=== PATIENT | female | born 1975 | race Caucasian/White ===

== ENCOUNTER 2020-10-22 14:34 | Outpatient (CLI) | payer OTHER, SELFPAY ==
--- NOTE | ~2020-10-22 | MM_ITS ---
EXAMINATION: MM screening cheryle BI w frank HISTORY: Screening mammogram TECHNIQUE: Craniocaudal and mediolateral oblique 3-D tomosynthesis images were obtained and synthetic 2-D images were generated. CAD analysis was submitted and interpreted. COMPARISON: , 02/28/2018, 01/19/2017 bilateral digital screening mammogram examinations BREAST PARENCHYMAL COMPOSITION: There are scattered areas of fibroglandular density. FINDINGS: There is no evidence of suspicious mass, calcification, or architectural distortion to sugg est malignancy in either breast. There has been no suspicious interval change. IMPRESSION: 1. No mammographic evidence of malignancy. 2. Recommend routine screening mammography in one year. BI-RADS Category 1: Negative Reviewed, dictated and finalized at location A.
== END 2020-10-22 14:35 | disposition home or self-care (01) ==
PROVIDERS: PCP Family Medicine; Visit Provider Obstetrics & Gynecology
DX: Z12.31 Encounter for screening mammogram for malignant neoplasm of breast (principal)
CPT/HCPCS: 77063; 77067

== ENCOUNTER 2022-02-02 15:43 | Outpatient (CLI) | payer OTHER, SELFPAY ==
--- NOTE | ~2022-02-02 | MM_ITS ---
EXAMINATION: MM screening cheryle BI w frank HISTORY: Screening TECHNIQUE: Craniocaudal and mediolateral oblique 3-D tomosynthesis images were obtained and synthetic 2-D images were generated. CAD analysis was submitted and interpreted. COMPARISON: Comparison to multiple prior studies sequentially, with oldest reviewed study dated 01/19. BREAST PARENCHYMAL COMPOSITION: Breast composed of scattered areas of fibroglandular density FINDINGS: There is no evidence of suspicious mass, calcification, or architectural distortion to sugg est malignancy in either breast. There has been no suspicious interval change. IMPRESSION: 1. No mammographic evidence of malignancy. 2. Recommend routine screening mammography in one year. BI-RADS Category 1: Negative Reviewed, dictated and finalized at location A.
== END 2022-02-02 15:44 | disposition home or self-care (01) ==
LOC: ANHIMG 15:53
PROVIDERS: PCP Family Medicine; Visit Provider Obstetrics & Gynecology
DX: Z12.31 Encounter for screening mammogram for malignant neoplasm of breast (principal)
CPT/HCPCS: 77063; 77067

== ENCOUNTER 2022-12-14 10:35 | Outpatient (CLI) | payer OTHER, SELFPAY ==
[2022-12-14 20:01] LABS: Basophils Percent Auto 0.6 % (0.2-1.2); Eosinophils Absolute Auto 0.1 K/mm3 (0-0.3); Eosinophils Percent Auto 2.3 % (0-4.4); Hematocrit 41.6 % (37.0-47.0); Hemoglobin 13.1 g/dL (12.0-15.0); Immature Granulocyte Absolute 0.01 K/mm3 (0.00-0.031); Immature Granulocyte Percent A 0.2 % (0-0.5); Lymphocytes Absolute Auto 1.59 K/mm3 (0.9-3.2); Lymphocytes Percent Auto 30.2 % (18.3-44.2); Mean Corpuscular HGB Conc 31.5 g/dl (32-36); Mean Corpuscular Hemoglobin 27.5 pg (26-34); Mean Corpuscular Volume 87.4 fl (80-100); Mean Platelet Volume 9.9 fl (7.4-10.4); Monocytes Absolute Auto 0.4 K/mm3 (0.1-0.6); Monocytes Percent Auto 7.4 % (2.6-8.5); Neutrophils Absolute Auto 3.1 K/mm3 (1.3-6.7); Neutrophils Percent Auto 59.3 % (45.5-73.1); Platelet Count Result 247 k/mm3 (150-375); Red Blood Count 4.76 M/mm3 (4.2-5.4); Red Cell Distribution Width 14.7 % (11.5-14.5); White Blood Count 5.3 K/mm3 (4.5-10.0)
[2022-12-14 21:04] LABS: Alanine Aminotransferase 24 U/L (6-35); Albumin Level 4.2 g/dL (3.5-5.1); Alkaline Phosphatase 72 U/L (38-126); Anion Gap 6 mmol/L (8-16); Aspartate Amino Transferase 39 U/L (14-36); Bilirubin,Total 0.4 mg/dL (0.2-1.3); Blood Urea Nitrogen 17 mg/dL (7-17); Calcium 9.1 mg/dL (8.4-10.2); Carbon Dioxide 31 mmol/L (22-30); Chloride 100 mmol/L (98-107); Cholesterol 191 mg/dL (0-200); Estimated Glomerular Filt Rate > 60; Glucose 94 mg/dL (65-110); HDL Direct 59 mg/dL; Sodium 137 mmol/L (137-145); Triglycerides 70 mg/dL (<150)
[2022-12-14 21:15] LABS: LDL Cholesterol Direct 105 mg/dL
[2022-12-14 21:25] LABS: Hemoglobin A1C 5.7 % (<5.7)
== END 2022-12-14 10:36 | disposition home or self-care (01) ==
LOC: ANHGOSHLAB 10:36
PROVIDERS: PCP Family Medicine; Visit Provider Family Medicine
DX: R53.83 Other fatigue (principal); Z13.220 Encounter for screening for lipoid disorders; Z13.29 Encounter for screening for other suspected endocrine disorder; E11.9 Type 2 diabetes mellitus without complications; Z13.228 Encounter for screening for other metabolic disorders
CPT/HCPCS: 36415; 80053; 80061; 83036; 84443; 85025

== ENCOUNTER 2023-01-11 12:30 | Outpatient (RCR) | payer OTHER, SELFPAY ==
--- NOTE | 2023-01-04 15:00 | OTOPEVAL1 ---
Assessment and note entered by Lakisha Archer OTR/Martín Evaluation Information Assessment Status Evaluation Diagnosis numbness in R UE hands Subjective Information Patient reports numbness and tingling throughout dorsal and volar aspect of digits 1-4 in R UE for years but has become worse over the past few months. Patient reports the numbness and tingling increases with daily tasks such as putting on make up, blow drying hair, holding a book/phone. Patient has a wrist cock up splint which she wears sometimes at night time. 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 Patient has R UE positive carpal compression/tinnels over carpal and a negative cubital compression/tinnels indicating median nerve compression symptoms. Patient additionally presents with radial nerve compression symptoms. Patient would benefit from skilled OT for HEP instruction, UE exercise, splinting as indicated in order to decrease median /radial compression symptoms and increase functional use of R UE. Plan of Care Interventions Therapeutic Exercise,Manual Therapy,Neuro Re- education,Therapeutic Activities,Self-Care/Home Management,Check Out for Orthotic/Pr OT Services Indicated Yes Treatment Frequency and 0-1x/wk, 5 weeks Duration These treatments will address the objective and functional deficits as defined above. The patient will be advanced safely and appropriately in order for the patient to progress towards his/her prior level of function. Additional exercises will be introduced and as well as a comprehensive home exercise program upon discharge, if needed, ?to ensure carryover of functional gains achieved in the clinic. This treatment plan has been reviewed and agreement upon by the patient.
--- NOTE | 2023-02-07 14:14 | OTOPDC ---
Assessment and note entered by Cristi Sainz, SUSAN/Martín, CHT Assessment OT Clinical Summary Coral called today reporting that her symptoms are improving with splinting, ROM, and nerve glides. She reports she would like to go on her own at this time and follow up with her MD if any needs arise in the future. Discharging from OT at this time. She attended the initial evaluation and 1 follow up session.
== END 2023-02-08 08:48 | disposition home or self-care (01) ==
LOC: ANHGOSHOT 12:30
PROVIDERS: PCP Family Medicine; Visit Provider Family Medicine
DX: G56.20 Lesion of ulnar nerve, unspecified upper limb (principal)
CPT/HCPCS: 97110; 97140; 97165; 97530

== ENCOUNTER → 2023-08-10 13:38 | Outpatient (CLI) | payer OTHER, SELFPAY ==
--- NOTE | ~2023-08-10 | US_ITS ---
EXAMINATION: US thyroid DATE: 08/10/2023 13:56 INDICATION: Nontoxic single thyroid nodule TECHNIQUE: Multiple ultrasound images of the thyroid were obtained. COMPARISON: None. FINDINGS: The right thyroid lobe measures 5.0 x 1.7 x 1.7 cm. The left thyroid lobe measures 4.5 x 1.1 x 1.4 c m. 8 mm wider than tall solid hypoechoic nodule with ill-defined margins and without echogenic foci in the inferior right thyroid lobe (TI-RADS 4, moderately suspicious , FNA if >=1.5 cm, annual follow up is >=1 cm). 2 mm nodule in the more cephalad right thyroid, due to the small size it remains uncle ar whether this represents a cystic TI RADS 1 or solid hypoechoic TI RADS 4 nodule. There is normal e chotexture, echogenicity and vascular flow throughout the remainder of the thyroid gland. IMPRESSION: 1. 8 mm TI RADS 4 right thyroid nodule which remains below size criteria for either biopsy or ultraso und follow-up. Recommend clinical followup with repeat imaging if there are changes on physical exam. Reviewed, dictated and finalized at location A. 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 8 mm TI RADS 4 right thyroid nodule which remains below size criteria for ei ther biopsy or ultrasound follow-up. Recommend clinical followup with repeat im aging if there are changes on physical exam.
== END ==
PROVIDERS: PCP Family Medicine; Visit Provider Family Medicine
DX: E04.1 Nontoxic single thyroid nodule (principal)
CPT/HCPCS: 76536

== ENCOUNTER 2023-09-27 15:38 | Outpatient (CLI) | payer OTHER, SELFPAY ==
--- NOTE | ~2023-09-27 | MR_ITS ---
EXAMINATION: MR brain/brain stem wo/w con DATE: 09/27/2023 16:35 INDICATION: Migraine, unspecified, not intractable. TECHNIQUE: Magnetic resonance imaging (MRI) of the brain and brainstem was performed without and with 20 mL MultiHance intravenous contrast. COMPARISON: None. FINDINGS: There is no intracranial hemorrhage, acute infarction, or abnormal intracranial mass lesion . The ventricles are normal in size. There is a mucous retention cyst in left maxillary sinus. The or bits are normal. The mastoid air cells are normal. IMPRESSION: 1. Normal brain. Reviewed, dictated and finalized at location A. NISTRATIVE SERVICES DIRECTOR IMPRESSION: 1. Normal brain.
== END 2023-09-27 15:39 | disposition home or self-care (01) ==
PROVIDERS: PCP Family Medicine; Visit Provider Family Medicine
DX: G43.909 Migraine, unspecified, not intractable, without status migrainosus (principal); E23.6 Other disorders of pituitary gland
CPT/HCPCS: 70553; A9577

== ENCOUNTER 2023-11-06 09:09 | Outpatient (CLI) | payer OTHER, SELFPAY ==
--- NOTE | ~2023-11-06 | XR_ITS ---
EXAM: XR knee RT min 4V DATE: 11/06/2023 09:34 HISTORY: no injury posterior knee pain for 3 weeks . COMPARISON: 09/03/2018. FINDINGS: Mildly decreased mineralization. No fracture or dislocation. No lytic or blastic lesion. T ricompartmental right knee osteoarthritis, moderate in the medial and patellofemoral compartments. No erosion or periosteal change. Small volume knee joint fluid. Soft tissues within normal limits. IMPRESSION: No acute osseous finding in the right knee. Reviewed, dictated and finalized at location K.
== END 2023-11-06 09:10 ==
PROVIDERS: PCP Family Medicine; Visit Provider Family Medicine
DX: M25.561 Pain in right knee (principal)
CPT/HCPCS: 73564

== ENCOUNTER 2023-11-10 14:06 | Outpatient (CLI) | payer OTHER, SELFPAY ==
--- NOTE | ~2023-11-10 | MM_ITS ---
EXAMINATION: MM screening cheryle BI w frank HISTORY: Screening TECHNIQUE: Craniocaudal and mediolateral oblique 3-D tomosynthesis images were obtained and synthetic 2-D images were generated. CAD analysis was submitted and interpreted. COMPARISON: Comparison to multiple prior studies sequentially, with oldest reviewed study dated 10/22. BREAST PARENCHYMAL COMPOSITION: Not dense: There are scattered areas of fibroglandular density. FINDINGS: There is no evidence of suspicious mass, calcification, or architectural distortion to sugg est malignancy in either breast. There has been no suspicious interval change. IMPRESSION: 1. No mammographic evidence of malignancy. 2. Recommend routine screening mammography in one year. BI-RADS Category 1: Negative Reviewed, dictated and finalized at location A.
== END 2023-11-10 14:07 | disposition home or self-care (01) ==
LOC: ANHIMG 14:08
PROVIDERS: PCP Family Medicine; Visit Provider Obstetrics & Gynecology
DX: Z12.31 Encounter for screening mammogram for malignant neoplasm of breast (principal)
CPT/HCPCS: 77063; 77067

== ENCOUNTER 2023-12-26 11:04 | Outpatient (CLI) | payer OTHER, SELFPAY ==
--- NOTE | ~2023-12-26 | XR_ITS ---
Left Knee Technique: AP, lateral, and sunrise views were obtained. Clinical History: Pain Findings: No fracture or dislocation is seen. Osseous alignment is anatomic. There is mild to moderat e tricompartmental degenerative spurring. Soft tissues are unremarkable. No joint effusion is seen. Impression: Mild to moderate tricompartmental degenerative spurring, worst at the patella. Reviewed, dictated and finalized at location . Impression: Mild to moderate tricompartmental degenerative spurring, worst at the patella.
== END 2023-12-26 11:05 ==
PROVIDERS: PCP Family Medicine; Visit Provider Family Medicine
DX: M76.892 Other specified enthesopathies of left lower limb, excluding foot (principal); M25.562 Pain in left knee
CPT/HCPCS: 73564

== ENCOUNTER 2024-01-05 11:04 | Outpatient (CLI) | payer OTHER, SELFPAY ==
--- NOTE | ~2024-01-05 | MR_ITS ---
EXAMINATION: MR knee LT wo con DATE: 01/05/2024 11:49 INDICATION: Unspecified internal derangement of left knee. Left knee pain. TECHNIQUE: Magnetic resonance imaging (MRI) of the left knee was performed without intravenous contra st. Sequences included axial PD-weighted FS FSE, coronal PD-weighted FSE and PD-weighted FS FSE, sagi ttal PD-weighted FSE, and sagittal T2-weighted FS FSE. COMPARISON: Left knee radiographs 12/26/2023 FINDINGS: Medial compartment: There is a radial tear of posterior horn of medial meniscus. There is cartilage surface irregularity of tibial condyle. There is deep partial-thickness cartilage loss of femoral condyle medially. Osteop hytes are noted. Lateral compartment: Lateral meniscus is normal. There is deep partial-thickness cartilage loss of tibial condyle and femo ral condyle involving the central articular surface. Osteophytes are noted. Patellofemoral compartment: There is full-thickness cartilage loss of patellar lateral facet with mild subchondral edema-like mar row signal intensity. There is full-thickness cartilage loss of central and lateral trochlea. Osteoph ytes are noted. Ligaments and tendons: The anterior and posterior cruciate ligaments are normal. There are changes of prior sprains of media l collateral ligament and fibular collateral ligament characterized by increased signal intensity. Th ere is mild patellar tendinopathy. Fluid: There is a small knee joint effusion. IMPRESSION: 1. Severe chondrosis of patellofemoral compartment and moderate chondrosis of medial and lateral comp artments. 2. Tear of medial meniscus. 3. Small knee joint effusion. Reviewed, dictated and finalized at location A. IMPRESSION: 1. Severe chondrosis of patellofemoral compartment and moderate chondrosis of m edial and lateral compartments. 2. Tear of medial meniscus. 3. Small knee joint effusion.
== END 2024-01-05 11:05 ==
LOC: MICIMG 11:04
PROVIDERS: PCP Family Medicine; Visit Provider Family Medicine
DX: M25.462 Effusion, left knee (principal); S83.242D Other tear of medial meniscus, current injury, left knee, subsequent encounter; X58.XXXD Exposure to other specified factors, subsequent encounter
CPT/HCPCS: 73721

== ENCOUNTER 2024-02-29 13:08 | Outpatient (CLI) | payer OTHER, SELFPAY ==
--- NOTE | 2024-02-29 13:00 | ECG_ITS ---
Test Date: 2024-02-29 13:44:59 Measurements Intervals [place] Rate: 73 P: 54 CO: 167 QRS: 5 QRSD: 100 T: 42 QT: 369 QTc: 408 Interpretive Statements SINUS RHYTHM LOW QRS VOLTAGE IN PRECORDIAL LEADS [QRS DEFLECTION < 1.0 mV IN CHEST LEADS] POOR R-WAVE PROGRESSION BORDERLINE ECG No previous ECG available for comparison Electronically Signed On 03-01-2024 11:01:58 CDT by Сергей Sommers M.D.
[2024-02-29 14:08] LABS: Anion Gap 10 mmol/L (4-12); Blood Urea Nitrogen 19 mg/dL (7-17); Calcium 9.4 mg/dL (8.4-10.2); Carbon Dioxide 28 mmol/L (22-30); Chloride 100 mmol/L (98-107); Estimated Glomerular Filt Rate > 60; Glucose 93 mg/dL (65-110); Sodium 138 mmol/L (137-145)
== END 2024-02-29 13:09 | disposition home or self-care (01) ==
LOC: ANHSURGERY 13:11
PROVIDERS: Anesthesiology; PCP Family Medicine; Visit Provider Orthopaedic Surgery
DX: I10 Essential (primary) hypertension (principal); Z79.899 Other long term (current) drug therapy; Z01.818 Encounter for other preprocedural examination; R94.31 Abnormal electrocardiogram [ECG] [EKG]
CPT/HCPCS: 36415; 80048; 93005

== ENCOUNTER 2024-03-04 00:51 | Day surgery (SDC) | payer OTHER, SELFPAY ==
[2024-02-28 10:34] VITALS: BMI 47.4
--- NOTE | 2024-02-28 10:40 | PC.NURSE ---
Report to the Outpatient Waiting Room, entrance under the green pavilion located off [facility], at time _0830_ on date _[id number]_. Planned Procedure Time: _1030_. Time changes happen often and if your time is changed the preop area will call you the afternoon before. - You and your visitor will be asked to self-screen and do not enter if you have any COVID symptoms. - A mask is optional within the hospital at this time. Patients may have clear liquids (water, carbonated beverages, clear teas, apple juice) until 3 hours prior to surgery with a maximum of 20 ounces. - No food from midnight until time of surgery Take the following medications with a SIP of water the morning of surgery: ____None DO NOT STOP ANY OF YOUR OTHER PRESCRIPTION MEDICATIONS PRIOR TO SURGERY ?EXCEPT THE FOLLOWING Medications to discontinue per physician Vitamins and fish oil Date to take last [id number] Ruvalcaba's office about Naproxen. Please no make-up, nail german, hairspray, perfume, deodorant, or body powder the day of surgery. No jewelry (including any body piercings) or valuables the day of surgery, leave them at home. Please take a shower or bath the night before, or the morning of, surgery with an antibacterial soap. Wear comfortable, loose fitting clothing. - Jewelry must be removed prior to entering the operating room. Rings and piercings that are not removed may be cut off. - The hospital will not accept responsibility for valuables. - Please leave all valuables, including medications, at home the day of surgery. If you are going home after surgery, a licensed driver lifter of sanitation truck must drive you home. - NO public transportation without another adult if you receive anesthesia. - We recommend that an adult stay with you for 24 hours following discharge. - We also recommend that you do not drive, make important decision, drink alcoholic beverages, or take any drugs that were not prescribed by your health care provider for at least 24 hours after your discharge time. Follow any additional instructions given to you from your surgeon. If you or anyone in your household have experienced Covid symptoms in the past week, please notify your surgeon or the nurse liaison at the phone number below for possible testing. Telephone instructions given to __Coral__and asked if any additional questions and then verbalized understanding. Patient advised to call surgeon office or pre surgery nurse liaison [phone] if any additional questions.
--- NOTE | 2024-03-01 14:02 | PM.IMHP ---
H&P: HPI History of Present Illness Date/Time: 03/01/24 14:02 Chief Complaint: Locking and catching Left knee. She has failed conservative treatment. She would like to proceed with Arthoscopy eft knee and partial meniscectomy. Review of Systems Musculoskeletal: Musculoskeletal: Reports arthralgias, Reports joint swelling and Reports stiffness [facility] Past Medical History Medical History Tear of meniscus of right knee Surgical History Surgical History H/O: hysterectomy History of cholecystectomy History of lateral meniscus repair of right knee History of tubal ligation Family History Family History Mother Hypertension Father Hypertension Sibling Hypertension Grandparent Hypertension Grandparent Hypertension Social History Social History (Updated 02/08/24 @ 13:24 by XANDER Poon) Social History: Caffeine daily Smoking status: Never smoker Second hand tobacco smoke exposure: Yes Alcohol intake: current Alcohol use details: rarely Substance use: never Substance use type: does not use Do You Feel Safe in your Home?: Yes Lack of Transportation: No Lack of Food: Never True Current Housing: I Have Housing Concerned About Future Housing: No Difficulty Paying Gas/Electric Bills: No Difficulty Paying for Meds: No Currently Unemployed: No Education: High School Diploma/GED Difficulty w/ Childcare or Family Care: No Living arrangements: with family Occupation/Education: occupation 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 Gender identity (if verbalized by the patient): Female Spiritual care concerns: No Meds Home Medications and Allergies Home Medications Medication Instructions Recorded Confirmed Type omega 3-dnp-hhg-fish oil 300 1 cap PO DAILY 11/14/22 02/28/24 History mg-1,000 mg capsule (Fish Oil) magnesium hydroxide 400 mg/5 mL 5 ml PO DAILY PRN Constipation 12/26/23 02/28/24 History oral suspension (Dulcolax (magnesium hydroxide)) losartan 50 mg-hydrochlorothiazide 1 tablet PO DAILY #90 tabs 01/16/24 02/28/24 Rx 12.5 mg tablet naproxen 500 mg tablet 500 mg PO DAILY #90 tabs 02/06/24 02/28/24 Rx cyanocobalamin (vitamin B-12) 1,000 mcg PO DAILY 02/28/24 02/28/24 History 1,000 mcg tablet (Vitamin B-12) vitamin A 10,000 unit tablet 10,000 unit PO DAILY 02/28/24 02/28/24 History Allergies Allergy/AdvReac Type Severity Reaction Status Date / Time No Known Allergies Allergy Verified 02/28/24 10:30 Exam Narrative: Patient has mechanical catching and locking of the left knee. She has a positive Joann's test. She has joint line pain. Neurologicaly she is intact. Knee X-Ray 12/26/23 Knee MRI 01/05/24 Assessment and Plan Assessment and plan (1) Acute medial meniscus tear of left knee: Code(s): S83.242A - Other tear of medial meniscus, current injury, left knee, initial encounter Status: Acute Assessment and Plan: Patient has a medial meniscal tear LEFT. She has mechanical catching and locking. She has failed conservative treatment. She would like to proceed with arthroscopy, partial meniscectomy, proceed as indicated. I have discussed risks, benefits, limitations and alternatives in detail. Will proceed per her request.
[2024-03-04] VITALS (13 sets, daily range): BP systolic 119–142; BP diastolic 70–85; PULSE 69–98; RESP 12–19; TEMP 36.2–36.6; O2SAT 94–100
[2024-03-04] MEDS: ACETAMINOPHEN 500 MG TABLET 1000 MG PO (09:05)
[2024-03-04] MEDS: KETOROLAC 15 MG/ML VIAL (*BKC) IV PUSH ×2 (09:15→12:28)
--- NOTE | 2024-03-04 09:24 | WPDANESEPPF ---
Anes - Initial Pre Proc Eval Procedure: Operation Date: 03/04/24 10:30 Proposed Procedures p Left Knee Arthroscopy with Partial Medial Meniscectomy, Proceed As Indicated - Desean Ruvaclaba MD Date/Time: 03/04/24 09:24 Surgeon: Desean Ruvalcaba MD Pre Op Diagnosis: Lt Medial Meniscus Tear Patient Data Age: 48 Gender: F Height: 1.6 m Weight: 121.6 kg Last Vital Signs Temp 36.6 C 03/04/24 08:40 Pulse 98 03/04/24 08:40 Resp 16 03/04/24 08:40 BP 141/81 H 03/04/24 08:40 Pulse Ox 100 03/04/24 08:40 O2 Del Method Room Air 03/04/24 08:40 Allergies Allergy/AdvReac Type Severity Reaction Status Date / Time No Known Allergies Allergy Verified 02/28/24 10:30 Home Medications Medication Instructions Recorded Confirmed Type omega 3-yti-vli-fish oil 300 1 cap PO DAILY 11/14/22 02/28/24 History mg-1,000 mg capsule (Fish Oil) magnesium hydroxide 400 mg/5 mL 5 ml PO DAILY PRN Constipation 12/26/23 02/28/24 History oral suspension (Dulcolax (magnesium hydroxide)) losartan 50 mg-hydrochlorothiazide 1 tablet PO DAILY #90 tabs 01/16/24 02/28/24 Rx 12.5 mg tablet naproxen 500 mg tablet 500 mg PO DAILY #90 tabs 02/06/24 02/28/24 Rx cyanocobalamin (vitamin B-12) 1,000 mcg PO DAILY 02/28/24 02/28/24 History 1,000 mcg tablet (Vitamin B-12) vitamin A 10,000 unit tablet 10,000 unit PO DAILY 02/28/24 02/28/24 History Patient hx anesthesia problems: none Family hx anesthesia problems: none Results Review: All pre-operative results and documents have been reviewed as part of the pre-operative evaluation. [facility] Past Medical History Medical History Tear of meniscus of right knee Surgical History Surgical History H/O: hysterectomy History of cholecystectomy History of lateral meniscus repair of right knee History of tubal ligation Family History Family History Mother Hypertension Father Hypertension Sibling Hypertension Grandparent Hypertension Grandparent Hypertension Social History Social History Social History: Caffeine daily Smoking status: Never smoker Second hand tobacco smoke exposure: Yes Alcohol intake: current Alcohol use details: rarely Substance use: never Substance use type: does not use Do You Feel Safe in your Home?: Yes Lack of Transportation: No Lack of Food: Never True Current Housing: I Have Housing Concerned About Future Housing: No Difficulty Paying Gas/Electric Bills: No Difficulty Paying for Meds: No Currently Unemployed: No Education: High School Diploma/GED Difficulty w/ Childcare or Family Care: No Living arrangements: with family Occupation/Education: occupation 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 Gender identity (if verbalized by the patient): Female Spiritual care concerns: No Anes - Eval Final PreProcedure Day of Procedure 03/04/24 09:24 Patient weight: morbidly obese Heart: regular rate and rhythm Lungs: clear to auscultation Airway: Mallampati scale class II Neurological: alert and oriented Last oral intake: >/= 8 hours ASA classification: III Emergent: no Anesthetic plan: proceed Anesthesia type and monitoring: general LMA and standard monitoring Results Review: All pre-operative results and documents have been reviewed as part of the pre-operative evaluation. Informed Consent: The patient's anesthetic plan and its attendant risks and benefits were discussed with the patient/family/POA. Questions were solicited and answers provided to the satisfaction of the patient/family/POA.
--- NOTE | 2024-03-04 09:43 | WPDHPUPDATE1 ---
History and Physical Update Update Date/Time: 03/04/24 09:43 History and Physical has been reviewed, including an updated exam of the patient. There are NO changes in the patient's condition. Risks, benefits, and alternatives have been discussed and questions answered. Patient agrees to proceed with procedure. Discussed the fact she has moderate pre-existing arthritis in the knee scope will not get rid of the arthritic pain.
[2024-03-04] MEDS: ceFAZolin 3 GM/D5W 100 ML 100 ML IVPB (10:19)
[2024-03-04] MEDS: SCOPOLAMINE 1 MG PATCH 1 PATCH TRANSDERM (10:20)
[2024-03-04] MEDS: LIDO 1%/EPINEPHRINE 1:100,000 20 ML VIAL 30 ML INFILTRATE (11:13)
--- NOTE | 2024-03-04 11:13 | W.PM.PROC2 ---
Procedure Note - Detailed Date of Procedure 03/04/24 Pre-op Diagnosis Left Medial Meniscus Tear Post-op Diagnosis Same Procedure Performed LEFT knee arthroscopy with partial meniscectomy Surgeon Desean Ruvalcaba MD Anesthesia General Indications Pain and catching Description of Procedure Patient brought to operating room # 9. An anesthetic was administered. The knee was sterilely prepped and draped in the usual manner. Standard portals were used. Superior medial portal was used for the outflow cannula, inferior lateral portal was used for the scope, inferior medial portal was used for the instruments. Arthroscopy was performed, the patellar femoral joint degenerative changes. The medial compartment showed a complex tear and grade 3-4 chondromalacia. The lateral compartment showed fraying and tearing with grade 3 chondromalacia. The ACL was intact. Using baskets and vicki the meniscal tears were trimmed back to a stable base so the nothing further could be pulled into the joint. Any loose or delaminated fragments were gently trimmed to a stable base. At this point the instruments were withdrawn, sutures placed and patient left the operating room in satisfactory condition. Of note is the patient had a significant amount of degenerative change. Estimated Blood Loss 20 Drains No Packing No Pathology None sent Complications No immediate complications Condition Stable Disposition PACU [facility] Billing Surgery - Charge Forward: Surgery Billing ([id number] Arthroscopy, partial meniscectomy)
[2024-03-04] MEDS: LACTATED RINGERS 1,000 ML 30 ML IV CONT ×2 (11:22)
[2024-03-04] MEDS: fentaNYL CITRATE INJ (*CRX) 100 MCG/2 ML VIAL 25 MCG IV PUSH ×8 (11:34→12:02)
[2024-03-04] MEDS: HYDROmorphone HCL INJ (*CRX) 1 MG/ML SYR IV PUSH ×3 (12:04→12:18)
[2024-03-04] MEDS: oxyCODONE HCL (*CRX) 5 MG TAB IR PO (14:08)
== END 2024-03-04 14:50 | disposition home or self-care (01) ==
PROVIDERS: PCP Family Medicine; Visit Provider Orthopaedic Surgery
PROC: (CPT 29870; principal; 2024-03-04 10:30)
DX: S83.232A Complex tear of medial meniscus, current injury, left knee, initial encounter (principal); M94.262 Chondromalacia, left knee; E66.01 Morbid (severe) obesity due to excess calories; Z68.42 Body mass index [BMI] 45.0-49.9, adult; Z79.1 Long term (current) use of non-steroidal anti-inflammatories (NSAID); Z98.890 Other specified postprocedural states; Z90.49 Acquired absence of other specified parts of digestive tract; Z98.51 Tubal ligation status; X58.XXXA Exposure to other specified factors, initial encounter
CPT/HCPCS: 29881; 36415; 80048; 93005; A9270; J0690; J1100; J1170; J1885; J2250; J2405; J2704; J3010; J7120

== ENCOUNTER 2024-03-19 11:05 | Outpatient (CLI) | payer OTHER, SELFPAY ==
[2024-03-19 15:20] LABS: Basophils Absolute Auto 0.1 K/mm3 (0.0-0.1); Basophils Percent Auto 0.9 % (0.2-1.2); Eosinophils Absolute Auto 0.1 K/mm3 (0-0.3); Eosinophils Percent Auto 1.1 % (0-4.4); Hematocrit 43.1 % (37.0-47.0); Hemoglobin 13.6 g/dL (12.0-15.0); Immature Granulocyte Absolute 0.02 K/mm3 (0.00-0.031); Immature Granulocyte Percent A 0.4 % (0-0.5); Lymphocytes Absolute Auto 1.58 K/mm3 (0.9-3.2); Lymphocytes Percent Auto 28.7 % (18.3-44.2); Mean Corpuscular HGB Conc 31.6 g/dl (32-36); Mean Corpuscular Volume 88.7 fl (80-100); Mean Platelet Volume 9.8 fl (7.4-10.4); Monocytes Absolute Auto 0.4 K/mm3 (0.1-0.6); Monocytes Percent Auto 6.5 % (2.6-8.5); Neutrophils Absolute Auto 3.4 K/mm3 (1.3-6.7); Neutrophils Percent Auto 62.4 % (45.5-73.1); Platelet Count Result 290 k/mm3 (150-375); Red Blood Count 4.86 M/mm3 (4.2-5.4); Red Cell Distribution Width 14.2 % (11.5-14.5); White Blood Count 5.5 K/mm3 (4.5-10.0)
[2024-03-19 15:23] LABS: Alanine Aminotransferase 24 U/L (6-35); Albumin Level 4.5 g/dL (3.5-5.1); Alkaline Phosphatase 87 U/L (38-126); Anion Gap 9 mmol/L (4-12); Aspartate Amino Transferase 55 U/L (14-36); Bilirubin,Total 0.5 mg/dL (0.2-1.3); Blood Urea Nitrogen 15 mg/dL (7-17); Calcium 9.5 mg/dL (8.4-10.2); Carbon Dioxide 30 mmol/L (22-30); Chloride 98 mmol/L (98-107); Cholesterol 210 mg/dL (0-200); Estimated Glomerular Filt Rate > 60; Glucose 97 mg/dL (65-110); HDL Direct 64 mg/dL; Potassium 4.3 mmol/L (3.4-5.0); Sodium 137 mmol/L (137-145); Triglycerides 52 mg/dL (<150)
[2024-03-19 15:54] LABS: LDL Cholesterol Direct 96 mg/dL
[2024-03-19 16:30] LABS: Vitamin D 25 Hydroxy 27.3 ng/mL
== END 2024-03-19 11:06 | disposition home or self-care (01) ==
LOC: ANHGOSHLAB 11:07
PROVIDERS: PCP Family Medicine; Visit Provider Family Medicine
DX: R53.83 Other fatigue (principal); Z13.220 Encounter for screening for lipoid disorders; E55.9 Vitamin D deficiency, unspecified; Z13.228 Encounter for screening for other metabolic disorders
CPT/HCPCS: 36415; 80053; 80061; 82306; 85025

== ENCOUNTER 2025-02-19 08:24 | Outpatient (CLI) | payer OTHER, SELFPAY ==
--- NOTE | ~2025-02-19 | MM_ITS ---
EXAMINATION: MM screening cheryle BI w frank HISTORY: Screening TECHNIQUE: Craniocaudal and mediolateral oblique 3-D tomosynthesis images were obtained and synthetic 2-D images were generated. CAD analysis was submitted and interpreted. COMPARISON: Comparison to multiple prior studies sequentially, with oldest reviewed study dated 01/19. BREAST PARENCHYMAL COMPOSITION: There are scattered areas of fibroglandular density. FINDINGS: There is no evidence of suspicious mass, calcification, or architectural distortion to sug gest malignancy in either breast. IMPRESSION: 1. No mammographic evidence of malignancy. 2. Recommend routine screening mammography in one year. BI-RADS Category 1: Negative Reviewed, dictated and finalized at location []
== END 2025-02-19 08:25 | disposition home or self-care (01) ==
LOC: CHSIMG 08:25
PROVIDERS: PCP Family Medicine; Visit Provider Family Medicine
DX: Z12.31 Encounter for screening mammogram for malignant neoplasm of breast (principal)
CPT/HCPCS: 77063; 77067

== ENCOUNTER 2025-02-27 10:40 | Outpatient (CLI) | payer OTHER, SELFPAY ==
[2025-02-27 13:09] LABS: Alanine Aminotransferase 32 U/L (6-35); Albumin Level 4.2 g/dL (3.5-5.1); Alkaline Phosphatase 90 U/L (38-126); Anion Gap 7 mmol/L (4-12); Aspartate Amino Transferase 47 U/L (14-36); Bilirubin,Total 0.4 mg/dL (0.2-1.3); Blood Urea Nitrogen 16 mg/dL (7-17); Calcium 9.4 mg/dL (8.4-10.2); Carbon Dioxide 27 mmol/L (22-30); Chloride 100 mmol/L (98-107); Cholesterol 191 mg/dL (0-200); Estimated Glomerular Filt Rate > 60; Glucose 117 mg/dL (65-110); HDL Direct 52 mg/dL; Potassium 4.1 mmol/L (3.4-5.0); Sodium 134 mmol/L (137-145); Total Protein 7.7 g/dL (6.3-8.2); Triglycerides 64 mg/dL (<150)
[2025-02-27 13:10] LABS: Hematocrit 42.6 % (37.0-47.0); Hemoglobin 13.5 g/dL (12.0-15.0); Mean Corpuscular HGB Conc 31.7 g/dl (32-36); Mean Corpuscular Hemoglobin 27.3 pg (26-34); Mean Corpuscular Volume 86.2 fl (80-100); Platelet Count Result 259 k/mm3 (150-375); Red Blood Count 4.94 M/mm3 (4.2-5.4); White Blood Count 5.0 K/mm3 (4.5-10.0)
[2025-02-27 13:45] LABS: Thyroid Stimulating Hormone 1.400 uIU/mL (0.465-4.680)
[2025-02-27 16:23] LABS: Hemoglobin A1C 6.0 % (<5.7)
== END 2025-02-27 10:41 | disposition home or self-care (01) ==
LOC: ANHGOSHLAB 10:41
PROVIDERS: PCP Family Medicine; Visit Provider Family Medicine
DX: E66.01 Morbid (severe) obesity due to excess calories (principal); I10 Essential (primary) hypertension; Z79.899 Other long term (current) drug therapy; R73.01 Impaired fasting glucose
CPT/HCPCS: 36415; 80053; 80061; 83036; 84443; 85027

== ENCOUNTER 2025-05-05 01:13 | Day surgery (SDC) | payer OTHER, SELFPAY ==
[2025-04-22 11:33] VITALS: BMI 46.2
[2025-05-05 08:37] VITALS: BP 162/94; PULSE 83; RESP 19; TEMP 36.4; O2SAT 100
[2025-05-05] MEDS: LACTATED RINGERS 1,000 ML 150 ML IV CONT (08:49)
--- NOTE | 2025-05-05 09:14 | WPDANESEPPF ---
Anes - Initial Pre Proc Eval Procedure: Operation Date: 05/05/25 09:30 Proposed Procedures p EGD & Screening Colonoscopy - Jono Gongora DO Date/Time: 05/05/25 09:14 Surgeon: Jono Gongora DO Pre Op Diagnosis: Neoplasm screening & epigastric abdominal pain Patient Data Age: 49 Gender: F Height: 1.6 m Weight: 119.4 kg Last Vital Signs Temp 36.4 C L 05/05/25 08:37 Pulse 83 05/05/25 08:37 Resp 19 05/05/25 08:37 BP 162/94 H 05/05/25 08:37 Pulse Ox 100 05/05/25 08:37 O2 Del Method Room Air 05/05/25 08:37 Allergies Allergy/AdvReac Type Severity Reaction Status Date / Time No Known Allergies Allergy Verified 05/05/25 08:34 Home Medications ?Medication ?Instructions ?Recorded ?Confirmed ?Type cyanocobalamin (vitamin B-12) 1,000 mcg PO DAILY 02/28/24 05/05/25 History 1,000 mcg tablet (Vitamin B-12) vitamin A 10,000 unit tablet 10,000 unit PO DAILY 02/28/24 05/05/25 History cholecalciferol (vitamin D3) 125 125 mcg PO DAILY 01/27/25 05/05/25 History mcg (5,000 unit) capsule estradiol 0.5 mg/0.5 gram (0.1 %) 1 packet topical DAILY 01/27/25 05/05/25 History transdermal gel packet losartan 50 mg-hydrochlorothiazide 1 tablet PO DAILY #90 tabs 02/10/25 05/05/25 Rx 12.5 mg tablet omeprazole 40 mg capsule,delayed 40 mg PO BID #60 caps 04/28/25 04/28/25 Rx release Patient hx anesthesia problems: none Family hx anesthesia problems: none Results Review: All pre-operative results and documents have been reviewed as part of the pre-operative evaluation. [facility] Past Medical History Medical History Tear of meniscus of right knee Surgical History Surgical History Hx of left knee surgery History of lateral meniscus repair of right knee History of tubal ligation History of cholecystectomy H/O: hysterectomy Family History Family History Mother Hypertension Father Hypertension Sibling Hypertension Grandparent Hypertension Grandparent Hypertension Social History Social History Social History: Caffeine daily Smoking status: Never smoker Second hand tobacco smoke exposure: Yes Alcohol intake: never Alcohol use details: rarely Substance use: never Substance use type: does not use Do You Feel Safe in your Home?: Yes Lack of Transportation: No Lack of Food: Never True Current Housing: I Have Housing Concerned About Future Housing: No Difficulty Paying Gas/Electric Bills: No Difficulty Paying for Meds: No Currently Unemployed: No Education: High School Diploma/GED Difficulty w/ Childcare or Family Care: No Living arrangements: with family Occupation/Education: occupation 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 Gender identity (if verbalized by the patient): Female Spiritual care concerns: No Anes - Eval Final PreProcedure Day of Procedure 05/05/25 09:14 Patient weight: morbidly obese Heart: regular rate and rhythm Lungs: clear to auscultation Airway: Mallampati scale class II Neurological: alert and oriented Last oral intake: >/= 8 hours ASA classification: III Emergent: no Anesthetic plan: proceed Anesthesia type and monitoring: general GIVS and standard monitoring Results Review: All pre-operative results and documents have been reviewed as part of the pre-operative evaluation. Informed Consent: The patient's anesthetic plan and its attendant risks and benefits were discussed with the patient/family/POA. Questions were solicited and answers provided to the satisfaction of the patient/family/POA.
--- NOTE | 2025-05-05 09:32 | PM.IMHP ---
H&P: HPI History of Present Illness Date/Time: 05/05/25 09:32 Chief Complaint: epigastric pain, acid reflux, screening for colorectal cancer Narrative: This is a 49-year-old woman who presents for EGD and colonoscopy. She has been experiencing epigastric pain and worsening acid reflux over the past several months. She does notice some occasional dysphagia with solids as well but denies any dysphagia with liquids. She has used NSAIDs in the past but is now trying to avoid these. She denies tobacco use or alcohol use. She denies any family history of colon cancer and denies any hematochezia or melena. Review of Systems Review of Systems: All systems reviewed & are unremarkable except as noted in HPI and below Constitutional: Constitutional: Denies chills, Denies fever(s), Denies headache(s) and Denies weight loss Eyes: Eyes: Denies change in vision ENT: Denies dizziness, Denies headache(s), Denies neck mass and Denies throat swelling Cardiovascular: Cardiovascular: Denies chest pain, Denies lightheadedness and Denies dyspnea Respiratory: Respiratory: Denies cough, Denies dyspnea and Denies wheezing Gastrointestinal: Gastrointestinal: Denies abdominal pain, Denies change in bowel habits, Denies nausea and Denies vomiting Genitourinary: Genitourinary: Denies hematuria and Denies dysuria Musculoskeletal: Musculoskeletal: Reports as per HPI Integumentary/Breasts: Skin/Breast: Reports as per HPI Neurologic: Denies dizziness and Denies headache(s) Allergic/Immunologic: Allergic/Immunologic: Denies throat swelling and Denies wheezing [facility] Past Medical History Medical History Tear of meniscus of right knee Surgical History Surgical History Hx of left knee surgery History of lateral meniscus repair of right knee History of tubal ligation History of cholecystectomy H/O: hysterectomy Family History Family History Mother Hypertension Father Hypertension Sibling Hypertension Grandparent Hypertension Grandparent Hypertension Social History Social History Social History: Caffeine daily Smoking status: Never smoker Second hand tobacco smoke exposure: Yes Alcohol intake: never Alcohol use details: rarely Substance use: never Substance use type: does not use Do You Feel Safe in your Home?: Yes Lack of Transportation: No Lack of Food: Never True Current Housing: I Have Housing Concerned About Future Housing: No Difficulty Paying Gas/Electric Bills: No Difficulty Paying for Meds: No Currently Unemployed: No Education: High School Diploma/GED Difficulty w/ Childcare or Family Care: No Living arrangements: with family Occupation/Education: occupation 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 Gender identity (if verbalized by the patient): Female Spiritual care concerns: No Meds Home Medications and Allergies Home Medications ?Medication ?Instructions ?Recorded ?Confirmed ?Type cyanocobalamin (vitamin B-12) 1,000 mcg PO DAILY 02/28/24 05/05/25 History 1,000 mcg tablet (Vitamin B-12) vitamin A 10,000 unit tablet 10,000 unit PO DAILY 02/28/24 05/05/25 History cholecalciferol (vitamin D3) 125 125 mcg PO DAILY 01/27/25 05/05/25 History mcg (5,000 unit) capsule estradiol 0.5 mg/0.5 gram (0.1 %) 1 packet topical DAILY 01/27/25 05/05/25 History transdermal gel packet losartan 50 mg-hydrochlorothiazide 1 tablet PO DAILY #90 tabs 02/10/25 05/05/25 Rx 12.5 mg tablet omeprazole 40 mg capsule,delayed 40 mg PO BID #60 caps 04/28/25 04/28/25 Rx release Allergies Allergy/AdvReac Type Severity Reaction Status Date / Time No Known Allergies Allergy Verified 05/05/25 08:34 Vital Signs Vital Signs - 24 hr 05/05/25 08:37 Temperature 97.5 F L Pulse Rate 83 Respiratory Rate 19 Blood Pressure 162/94 H Pulse Oximetry 100 Oxygen Delivery Room Air Exam Const: General: no acute distress and alert Orientation/consciousness: patient oriented x3 HENMT: Head: normocephalic and atraumatic Ears: hearing grossly normal bilaterally Face/Nose/Sinus: Normal nares present Mouth: Yes Normal oral and palatal mucosa present Eyes: Periorbital: periorbital findings normal Sclera: sclerae normal EOM: EOMs intact bilaterally Neck: Neck: normal visual inspection, no lymphadenopathy and trachea midline Chest: Chest palpation & inspection: normal inspection of the chest Resp: Effort & Inspection: normal respiratory effort Auscultation: clear to auscultation bilaterally Cardio: Jugular venous distension: no JVD Rate: regular rate Rhythm: regular rhythm Heart sounds: S1 normal heart sound present and S2 normal heart sound present Peripheral pulses: Peripheral pulses 2+ throughout GI: Inspection: normal to inspection GI Palp: Yes Soft to palpation, No Tenderness to palpation present (GI), No Guarding due to palpation present (GI) and No Rebound tenderness present Percussion: Yes normal to percussion Auscultation: normal bowel sounds : General: Yes no CVA tenderness Back/Spine/Pelvis: Back: no CVA tenderness Neuro: General: patient oriented x3, no focal motor deficits and CN's II-XI intact bilaterally Cognition (Neuro): normal cognition Speech: normal speech Motor exam (neuro): 5/5 motor strength present throughout Extrem: General: capillary refill normal and no clubbing, cyanosis or edema Assessment and Plan Assessment and plan (1) Epigastric pain: Code(s): R10.13 - Epigastric pain Status: Acute Assessment and Plan: I have recommended EGD and colonoscopy. I have discussed the procedure, risks, benefits, and alternatives. Questions were answered. Patient is agreeable to proceed. (2) GERD (gastroesophageal reflux disease): Code(s): K21.9 - Gastro-esophageal reflux disease without esophagitis Status: Acute (3) Screening for colon cancer: Code(s): Z12.11 - Encounter for screening for malignant neoplasm of colon Status: Acute
[2025-05-05] MEDS: BENZOCAINE (*SP) 60 ML SPRAY CAN (HURRICAINE) 1 SPRAY MUCOUS MEM (09:49)
--- NOTE | 2025-05-05 09:58 | SUR.OPER ---
EGD ended 952 colonoscopy started 957
--- NOTE | 2025-05-05 10:01 | S_PTH ---
PATIENT: Coral Long LOC: [facility] Dee#:[id number] AGE/SX: 49/F ROOM: RE05/05/[address]: Jono Gongora DO : 1975 BED: DIS: 05/05/2025 SPEC #: [id number] RECD: 05/05/25 10:56 STATUS: ADELA REMary Ellen #: [id number] CHANDA: 05/05/25 10:[address]: Jono Gongora DEPT: [facility] Surgical RECD BY: Kadi Clifford ENTERED: 05/05/25 10:57 SP TYPE: Surgical OTHR DR: Prabha Kelley DO Tissues: A - Gastric Biopsy B - Gastric Biopsy C - Colon Polypectomy Procedures: Hematoxylin and Eosin Stain Gross and Microscopic Level 4
[2025-05-05 10:11] VITALS: BP 88/51; PULSE 88; RESP 17; O2SAT 96
[2025-05-05 10:21] VITALS: BP 105/56; PULSE 70; RESP 20; O2SAT 100
[2025-05-05 10:31] VITALS: BP 112/71; PULSE 68; RESP 20; O2SAT 100
[2025-05-05 10:49] LABS: HPYLORIRESULT Negative (Negative)
== END 2025-05-05 10:42 | disposition home or self-care (01) ==
PROVIDERS: PCP Family Medicine; Visit Provider Surgery
PROC: 0DJ08ZZ Inspection of Upper Intestinal Tract, Via Natural or Artificial Opening Endoscopic (ICD-10-PCS; CPT 45378; principal; 2025-05-05 09:30)
DX: Z12.11 Encounter for screening for malignant neoplasm of colon (principal); K62.1 Rectal polyp; K57.30 Diverticulosis of large intestine without perforation or abscess without bleeding; K21.00 Gastro-esophageal reflux disease with esophagitis, without bleeding; K31.89 Other diseases of stomach and duodenum; K44.9 Diaphragmatic hernia without obstruction or gangrene; E66.9 Obesity, unspecified; Z68.42 Body mass index [BMI] 45.0-49.9, adult; Z98.890 Other specified postprocedural states; Z98.51 Tubal ligation status; Z90.49 Acquired absence of other specified parts of digestive tract
CPT/HCPCS: 43239; 45380; 87081; 88305; J2003; J2704; J7120